=== PATIENT | female | born 1935 | race Caucasian/White ===

== ENCOUNTER 2019-09-21 15:09 | Emergency (ER) | payer OTHER ==
[2019-09-21] MEDS ORDERED: Norepinephrine 8 MG/0.9% NS 250 ML ONE (15:12)
[2019-09-21 15:54] LABS: Hemoglobin 9.6 g/dL (12.0-16.0); Mean Corpuscular HGB CONC 34.6 g/dL (32.0-36.0); Mean Corpuscular Hemoglobin 37.4 pg (27.0-31.0); Mean Platelet Volume 6.8 fL (7.4-10.4); Platelet Count 140 thou/uL (130-400); RBC Distribution Width 11.5 % (11.5-14.5); Red Blood Cell (RBC) Count 2.56 mill/uL (4.20-5.40); White Blood Cell (WBC) Count 21.6 thou/uL (4.8-10.8)
[2019-09-21 16:09] LABS: ALT (SGPT) 142 U/L (8-55); AST (SGOT) 275 U/L (5-34); Albumin 2.9 g/dL (3.4-4.8); Alkaline Phosphatase 84 U/L (40-110); Anion Gap 15 mmol/L (10-20); BUN (Urea Nitrogen) 25 mg/dL (9.8-20.1); Bilirubin, Total 0.2 mg/dL (0.2-1.2); Calc. Creatinine Clearance 0 mL/min (70-130); Calcium 9.2 mg/dL (7.8-10.44); Carbon Dioxide 22 mmol/L (23-31); Chloride 108 mmol/L (98-107); Estimated GFR-MDRD 58; Glucose 173 mg/dL (83-110); Lipase 65 U/L (8-78); Potassium 4.5 mmol/L (3.5-5.1); Protein, Total 4.9 g/dL (6.0-8.3); Sodium 140 mmol/L (136-145)
[2019-09-21 16:17] LABS: Band 28 % (5-11); Lymphocytes 32 % (21-51); MDiff Complete? YES; Macrocytosis SLIGHT = 6-15 cells (100X) (0-5/hpf); Metamyelocyte 1 % (0-0); Monocytes 8 % (0-10); Myelocyte 3 % (0-0); Neutrophil 22 % (42-75); Platelet Morphology Comment Appears Adequate; Polychromasia SLIGHT = 2-3 cells (100X) (0-2/hpf); Reactive Lymphocytes 6 % (0-10)
--- NOTE | 2019-09-21 16:21 | RAD ---
Chest one view HISTORY: Chest pain. FINDINGS: Cardiac silhouette is magnified by projection. Pulmonary vasculature are unremarkable. Mediastinum is midline with tip of the endotracheal catheter overlies the thoracic inlet. Nasogastric tube descends to the abdomen. Single lead left subclavian cardiac electronic device is in place. Dense consolidation with some component of atelectasis in the superior segment right lower lobe. Left lung is hyperinflated. Obliquely across the right base above the right hemidiaphragm may represent the pleura and suggests t he possibility of a pneumothorax on this supine image. Mildly displaced fractures involve the posterolateral aspect of right ribs 5 and 6. IMPRESSION : Dense atelectasis/consolidation right lower lobe. Possible right pneumothorax. Right posterolateral mid rib fractures.
--- NOTE | 2019-09-21 16:29 | RAD ---
RADIOGRAPH CHEST 1 VIEW: DATE: 09/21/2019 TIME: 3:02 PM HISTORY: 86-year-old female with cardiopulmonary arrest, status post cardiopulmonary resuscitation. COMPARISON: 09/21/2019 2:48 PM FINDINGS: Supine image. Evidence for a large right pneumothorax demonstrated by new right deep sulcus sign. New findings of small caliber vertically oriented short plastic catheters overlying bilateral upper lung zones, perhaps representing pleural catheters. New defibrillation paddle over the right lung. Ne w finding of large amount of subcutaneous emphysema in the right chest wall and right axilla. Dense consolidation involving large area right midlung zone again noted. New finding of cardiomediastinal m ild to moderate shift to the left. Endotracheal tube and esophagogastric tube remain. No cardiomegaly. Left lung is relatively clear.. IMPRESSION: 1) new large right tension pneumothorax 2) severe right subcutaneous emphysema. 3) no interval change in the large consolidation at right midlung zone
--- NOTE | 2019-09-21 23:23 | OP ---
DATE OF PROCEDURE: 09/21/2019 PREOPERATIVE DIAGNOSIS: Found down by , hypotensive, respiratory failure , suspected left tension pneumo. PROCEDURE PERFORMED: Placement of a 24-Welsh left thoracostomy tube. INDICATIONS FOR PROCEDURE: This is an 84 year-old female, who was a level 1 trauma activation, brought in by [facility]. Patient was found down by her unresponsive and reported guppy breathing. Patient was intubated by ground EMS. Patient arrived to the ER with good placement of ET tube. Patient had a brief period of losing pulse. Chest compressions were performed and return of spontaneous circulation was obtained. Bilateral needle decompressions were done in the emergency room. Initial chest x-ray showed rib fractures, posterolateral aspect , right 5 and 6. Chest tube placement to the right was completed by ER resident for a right pneumothorax. DESCRIPTION OF PROCEDURE: The patient was placed in supine position. Left chest wall was sterilely prepped and draped in usual fashion. The skin in the 6th intercostal space and left anterior axillary line were identified and a 1 cm transverse incision was made using a 15 scalpel. The left pleural cavity was entered through this incision using hemostats. Digital finger exploration revealed no pleural adhesions. A 24-Welsh thoracostomy tube was entered into the pleural cavity and advanced superiorly and posteriorly. The tube was then connected to Pleur-evac and placed to wall suction. The tube was secured to the anterior chest wall using 0 silk suture. Sterile dressings were applied. No complications. Job ID: [id number] [facility]
== END 2019-09-21 16:11 | disposition expired ==
LOC: EDBD 15:09 → MERGE 15:09 → ERS 15:09
DX: R57.0 Cardiogenic shock (principal); J93.9 Pneumothorax, unspecified; I95.9 Hypotension, unspecified; R09.02 Hypoxemia
CPT/HCPCS: 36556; 51702; 71045; 80053; 83605; 83690; 85025; 94002; 96365; 96375